=== PATIENT | female | born 1940 | race Caucasian/White ===

== ENCOUNTER 2018-05-01 08:30 | Outpatient (CLI) | payer MEDICARE ==
[2018-05-01] VITALS (15 sets, daily range): BP systolic 117–160; BP diastolic 57–85; PULSE 53–77
[~2018-05-01] VITALS: Ht 152.4 cm; Wt 56.9 kg
[2018-05-01] MEDS ORDERED: PRED FORTE 1 ML1 ML IO (08:58)
[2018-05-01] MEDS ORDERED: ASPIRIN 81M81 MG/TA2 PO (08:58)
[2018-05-01] MEDS ORDERED: NITROSTAT0.4 MG/TAB SL (08:59)
[2018-05-01] MEDS ORDERED: IMDUR 30MG30 MG/TAB PO (09:00)
[2018-05-01] MEDS ORDERED: GENTAMICIN EYE D5 ML OD (09:01)
[2018-05-01] MEDS ORDERED: TOPROL XL 50MG50 MG PO (09:03)
[2018-05-01] MEDS ORDERED: ZESTRIL 20MG TA20 MG PO (09:04)
[2018-05-01] MEDS ORDERED: LIDOCAINE HC20 MG/M2 PO (09:06)
[2018-05-01] MEDS ORDERED: PROTONIX 40MG T40 MG PO (09:07)
== END 2018-05-01 13:32 | disposition home or self-care (01) ==
LOC: COL.RAD 08:30
DX: R91.8 Other nonspecific abnormal finding of lung field (principal)